=== PATIENT | female | born 1965 | race Caucasian/White ===

== ENCOUNTER 2017-05-17 09:51 | Emergency (ER) | payer OTHER ==
[~2017-05-17] VITALS: Ht 167.6 cm; Wt 95.5 kg
[~2017-05-17 09:51] MED LIST: KLON2TAB PO
[2017-05-17] MEDS ORDERED: cloNIDine HCL 0.1 MG TAB PO ONE (10:45)
[2017-05-17 10:53] VITALS: BP 167/97; PULSE 93; RESP 18; TEMP 98.1; O2SAT 99
[2017-05-17] MEDS ORDERED: ADDE30TA PO (10:57)
[2017-05-17] MEDS ORDERED: PROZ40CA PO (10:58)
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
[2017-05-17 13:02] VITALS: BP 143/94; PULSE 100; RESP 20; TEMP 98.2; O2SAT 97
[2017-05-17] MEDS ORDERED: KLON2TAB PO (13:05)
[2017-05-17] MEDS ORDERED: FLUoxetine HCL 20 MG CAP PO SCH (14:00)
[2017-05-17 15:01] VITALS: BP 181/77; PULSE 90; RESP 18; O2SAT 98
[2017-05-17] MEDS ORDERED: clonazePAM 1 MG TAB PO SCH (21:00)
[2017-05-18] MEDS ORDERED: DEXTROAMPHETAMINE/AMPHETAMINE 30 MG TAB PO SCH (09:00)
== END 2017-05-17 16:16 ==
LOC: NEPJ 09:51
DX: R45.851 Suicidal ideations (principal); F31.9 Bipolar disorder, unspecified; F17.200 Nicotine dependence, unspecified, uncomplicated
CPT/HCPCS: 99285

== ENCOUNTER 2017-06-08 13:58 | Emergency (ER) | payer SELFPAY ==
[~2017-06-08 13:58] MED LIST changes: +ADDE30TA PO; +PROZ40CA PO
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
[2017-06-08 14:11] VITALS: BP 127/73; PULSE 115; RESP 18; TEMP 98.6; O2SAT 95
[2017-06-08] MEDS ORDERED: SODIUM CHLOR 0.9% 1000 ML INJ 1,000 ML IV ONE (14:15)
[2017-06-08 14:36] VITALS: O2SAT 95
[2017-06-08 14:43] LABS: AUTOMATED NEUTROPHIL # 4.1 TH/MM3 (1.8-7.7); BASOPHIL # 0.1 TH/MM3 (0-0.2); BASOPHIL % 0.9 % (0.0-2.0); EOSINOPHIL # 0.1 TH/MM3 (0-0.4); EOSINOPHIL % 1.5 % (0.0-4.0); HEMATOCRIT 43.4 % (35.0-46.0); HEMOGLOBIN 13.9 GM/DL (11.6-15.3); LYMPHOCYTE # 2.6 TH/MM3 (1.0-4.8); MEAN CELL VOLUME 88.4 FL (80.0-100.0); MEAN CORPUSCULAR HEMOGLOBIN 28.2 PG (27.0-34.0); MEAN CORPUSCULAR HGB CONC 31.9 % (32.0-36.0); MEAN PLATELET VOLUME 8.3 FL (7.0-11.0); MONO % 9.2 % (0.0-8.0); MONOCYTE # 0.7 TH/MM3 (0-0.9); NEUT % 54.4 % (16.0-70.0); PLATELET COUNT 306 TH/MM3 (150-450); RED BLOOD COUNT 4.91 MIL/MM3 (4.00-5.30); RED CELL DISTRIBUTION WIDTH 15.3 % (11.6-17.2); WHITE BLOOD COUNT 7.6 TH/MM3 (4.0-11.0)
[2017-06-08 14:54] LABS: CALCIUM 9.3 MG/DL (8.5-10.1)
[2017-06-08 14:55] VITALS: BP 92/56; PULSE 110; RESP 20; O2SAT 94
[2017-06-08 14:55] LABS: BICARBONATE 28.6 MEQ/L (21.0-32.0)
[2017-06-08 14:58] LABS: CREATININE 0.96 MG/DL (0.50-1.00)
[2017-06-08] MEDS ORDERED: ONDANSETRON HCL 4 MG/2 ML VIAL IVP ONE (15:30)
[2017-06-08 16:20] VITALS: BP 130/77; PULSE 113; RESP 16; O2SAT 96
[2017-06-08 17:29] VITALS: BP 128/77; PULSE 90; RESP 18; O2SAT 99
[2017-06-08 18:08] VITALS: BP 132/76; PULSE 110; RESP 24; TEMP 98.6; O2SAT 95
[2017-06-08] MEDS ORDERED: LORazepam 2 MG/ML VIAL IV PUSH PRN ×4 (20:45)
[2017-06-08] MEDS ORDERED: FLUMAZENIL 0.5 MG/5 ML VIAL IV PUSH PRN (20:45)
[2017-06-08] MEDS: LORazepam 1 MG TAB PO PRN (20:48)
[2017-06-08] MEDS ORDERED: ONDANSETRON ODT 4 MG TAB PO ONE (22:00)
[2017-06-09 00:07] VITALS: BP 173/85; PULSE 114; RESP 18; TEMP 98.4; O2SAT 98
[2017-06-09 03:00] VITALS: BP 166/98; PULSE 103; RESP 17; TEMP 98.3; O2SAT 96
[2017-06-09] MEDS: LORazepam 1 MG TAB PO PRN (06:27)
[2017-06-09] MEDS: LORazepam 2 MG TAB PO PRN ×2 (13:21→18:32)
[2017-06-09 14:30] VITALS: BP 192/83; PULSE 93; RESP 20; O2SAT 98
--- NOTE | 2017-06-09 17:37 | EKG ---
Date Performed: 06/08/2017 Time Performed: 15:01:23 PTAGE: 51 years EKG: SINUS TACHYCARDIA ABNORMAL RHYTHM ECG PREVIOUS TRACING : 09/01/2012 10.42 Since previous tracing, no significant change noted DOCTOR: Edy Powers Interpretating Date/Time 06/09/2017 17:35:05
[2017-06-09 18:30] VITALS: BP 180/99; PULSE 93; RESP 20; TEMP 97.7; O2SAT 98
[2017-06-10 02:37] VITALS: BP 168/94; PULSE 83; RESP 18; TEMP 98.2; O2SAT 100
[2017-06-10 07:10] VITALS: BP 177/97; PULSE 93; RESP 18; TEMP 98.7; O2SAT 98
[2017-06-10] MEDS ORDERED: CLON2TAB PO (10:57)
[2017-06-10] MEDS ORDERED: FLUO40CA PO (10:58)
[2017-06-10] MEDS ORDERED: ADDE30TA PO (10:59)
[2017-06-10] MEDS ORDERED: clonazePAM 1 MG TAB PO SCH (11:00)
[2017-06-10] MEDS ORDERED: FLUoxetine HCL 20 MG CAP PO ONE (11:00)
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
[2017-06-10 14:14] VITALS: BP 163/92; PULSE 91; RESP 16; TEMP 98.7; O2SAT 95
[2017-06-10] MEDS ORDERED: IBUPROFEN 600 MG TAB PO ONE (18:15)
[2017-06-10] MEDS ORDERED: clonazePAM 1 MG TAB PO ONE (19:45)
[2017-06-10 22:00] VITALS: BP 181/90; PULSE 82; RESP 17; TEMP 98.7; O2SAT 98
[2017-06-11 02:00] VITALS: BP 142/99; PULSE 80; RESP 16; TEMP 97.3; O2SAT 95
[2017-06-11] MEDS ORDERED: IBUPROFEN 600 MG TAB PO ONE (06:00)
[2017-06-11 06:29] VITALS: BP 141/85; PULSE 77; RESP 17; TEMP 98.5; O2SAT 97
[2017-06-11 10:18] VITALS: BP 131/69; PULSE 113; RESP 14; TEMP 98.6; O2SAT 95
[2017-06-11] MEDS ORDERED: clonazePAM 1 MG TAB PO SCH (10:45)
[2017-06-11] MEDS: LORazepam 1 MG TAB PO PRN (15:04)
[2017-06-11] MEDS ORDERED: clonazePAM 1 MG TAB PO ONE (20:30)
[2017-06-12 02:00] VITALS: BP 116/75; PULSE 78; RESP 18; TEMP 98.4; O2SAT 96
== END 2017-06-12 04:04 ==
LOC: PHED 13:58 → NEPJ 06-12 04:04
DX: F10.10 Alcohol abuse, uncomplicated (principal); F43.25 Adjustment disorder with mixed disturbance of emotions and conduct; F31.9 Bipolar disorder, unspecified; R00.0 Tachycardia, unspecified; R94.31 Abnormal electrocardiogram [ECG] [EKG]; F41.9 Anxiety disorder, unspecified; E78.00 Pure hypercholesterolemia, unspecified; J44.9 Chronic obstructive pulmonary disease, unspecified; F17.200 Nicotine dependence, unspecified, uncomplicated
CPT/HCPCS: 80048; 80307; 83690; 85025; 93005; 96361; 96374; 96375; 99284; J2060; J2405; J7030